=== PATIENT | male | born 1990 | race Caucasian/White ===

== ENCOUNTER 2016-08-10 21:41 | Emergency (ER) | payer OTHER ==
[2016-08-10 22:50] LABS: BILIRUBIN,URINE NEGATIVE (NEGATIVE); PH,URINE 7.5 PH (5.0-7.5)
[2016-08-10 22:51] LABS: UA CHARGE (STRIP ONLY) YES; UR CULTURE IF IND NOT INDICATED
--- NOTE | 2016-08-10 23:10 | ED Physician Documentation ---
PD HPI MALE - Stated complaint Stated Complaint: MALE - Chief complaint Chief Complaint: General - History obtained from History obtained from: Patient - History of Present Illness Timing - onset: Yesterday Timing - details: Gradual onset Associated symptoms: Dysuria (noted burning/sharp pain at end of penis when urinating for 2 days and a few small blister-type lesions on shaft of penis.). No: Discharge, Testiclar pain PD HPI MALE CONTRIB FACTORS: Sexually active Similar symptoms before: Has not had sx before Review of Systems Constitutional: reports: Myalgias. denies: Fever, Chills Throat: denies: Sore throat : reports: Dysuria. denies: Discharge PD PAST MEDICAL HISTORY - Past Medical History : None - Present Medications Home Medications: Ambulatory Orders Medication Instructions Recorded Confirmed Acyclovir 800 mg PO TID #20 tablet 08/10/16 Ibuprofen 800 mg PO TID #20 tablet 08/10/16 Mupirocin 1 applic TP TID #15 oint...g. 08/10/16 - Allergies Allergies/Adverse Reactions: Allergies Allergy/AdvReac Type Severity Reaction Status Date / Time No Known Drug Allergies Allergy Verified 08/10/16 21:49 PD ED PE NORMAL - Vitals Vital signs reviewed: Yes - General General: Alert and oriented X 3, Well developed/nourished - HEENT HEENT: Pharynx benign - Neck Neck: Supple, no meningeal sign, No adenopathy - Abdomen Abdomen: Soft, Non tender - Male Male : Other (base and shaft of penis with a few discrete red based, tender, slightly ulcerative lesions that appear vesicular but the roofs are off. No clustering of lesions. The meatus has redness and slight swelling just at tip, but no sore seen per se. ) - Back Back: No CVA TTP Results - Vitals Vitals: Oxygen O2 Source Room air - Labs Labs: Laboratory Tests 08/10/16 08/10/16 22:35 22:35 Urine Color STRAW Urine Clarity CLEAR Urine pH 7.5 Ur Specific Gillespie 1.020 Urine Protein NEGATIVE Urine Glucose (UA) NEGATIVE Urine Ketones NEGATIVE Urine Occult Blood NEGATIVE Urine Nitrite NEGATIVE Urine Bilirubin NEGATIVE Urine Urobilinogen 0.2 (NORMAL) Ur Leukocyte Esterase NEGATIVE Ur Microscopic Review NOT INDICATED Urine Culture Comments NOT INDICATED C.trachomatis RNA (TMA) NOT DETECTED Chlamydia/GC Comment SEE NOTE N.gonorrhoeae RNA (TMA) NOT DETECTED PD MEDICAL DECISION MAKING - ED course Complexity details: considered differential (look likely herpetic sores on shaft and has some meatal redness. Presume herpetic and got PCR viral, also to get chlamydial test off urine. ), d/w patient Departure - Departure Disposition: 01 Home, Self Care Clinical Impression: Sore of penis Condition: Stable Record reviewed to determine appropriate education?: Yes Instructions: ED Herpes Simplex Virus Type 2 Follow-Up: Francis Rich, [Primary Care Provider] - Prescriptions: Acyclovir 800 mg PO TID #20 tablet Ibuprofen 800 mg PO TID #20 tablet Mupirocin 1 applic TP TID #15 oint...g. Comments: This looks likely to be herpetic and would treat it that way for now. The PCR ( "culture") test for it will result in a few days. Cleanse the sores with soap and water and apply antibiotic ointment 2-3 times daily. Ibuprofen three times daily and add Tylenol as needed for pains. Follow up with PMD if not improved over the next several days. Forms: Activity restrictions Discharge Date/Time: 08/11/16 00:04
[2016-08-10] MEDS ORDERED: MUPIROCIN 2% OINT 1 GM TOP STA (23:37)
[2016-08-10] MEDS ORDERED: ACYCLOVIR 200 MG CAPSULE PO STA (23:37)
[2016-08-10] MEDS ORDERED: IBUPROFEN 600 MG TABLET PO STA (23:38)
[2016-08-10] MEDS ORDERED: ACETAMINOPHEN 325 MG TABLET PO STA (23:38)
[2016-08-10] MEDS ORDERED: MUPIROCIN 2% OINT 1 GM ONE (23:43)
[2016-08-10] MEDS ORDERED: ACYCLOVIR 200 MG CAPSULE PO ONE (23:43)
[2016-08-10] MEDS ORDERED: IBUPROFEN 600 MG TABLET PO ONE ×2 (23:43→23:44)
[2016-08-10] MEDS ORDERED: ACETAMINOPHEN 325 MG TABLET PO ONE (23:44)
[2016-08-10 23:59] VITALS: BP 149/79
== END 2016-08-11 00:04 | disposition home or self-care (01) ==
LOC: ED 21:41
DX: L98.8 Other specified disorders of the skin and subcutaneous tissue (principal); A60.01 Herpesviral infection of penis
CPT/HCPCS: 81003; 87491; 87529; 87591; 99283; A9270; 81001; 87081; 87086